=== PATIENT | female | born 1970 | race Asian ===

== ENCOUNTER 2020-03-18 12:49 | Outpatient (CLI) | payer OTHER | END 2020-03-18 19:59 | disposition home or self-care (01) | LOC: MAMMO 12:49 | PROVIDERS: ATTEND Registered Nurse | DX: Z12.31 Encounter for screening mammogram for malignant neoplasm of breast (principal) ==

== ENCOUNTER 2020-11-13 08:34 | Outpatient (CLI) | payer OTHER | END 2020-11-13 20:21 | disposition home or self-care (01) | LOC: MAMMO 08:34 | PROVIDERS: ATTEND Registered Nurse | DX: Z12.31 Encounter for screening mammogram for malignant neoplasm of breast (principal); R22.9 Localized swelling, mass and lump, unspecified | CPT/HCPCS: G0279 ==

== ENCOUNTER 2022-06-16 09:01 | Outpatient (CLI) | payer OTHER | END 2022-06-16 19:25 | disposition home or self-care (01) | LOC: MAMMO 09:01 | PROVIDERS: ATTEND Registered Nurse | DX: Z12.31 Encounter for screening mammogram for malignant neoplasm of breast (principal) ==